=== PATIENT | male | born 1995 | race Hispanic/Latino ===

== ENCOUNTER → 2019-08-18 | Outpatient (CLI) | payer BC ==
--- NOTE | 2019-08-18 14:23 | Diagnostic Imaging Report ---
EXAM: CT Abdomen and Pelvis WITHOUT intravenous contrast INDICATION: Flank pain COMPARISON: None. TECHNIQUE: Abdomen and pelvis were scanned utilizing a multidetector helical scanner from the lung base to the pubic symphysis without administration of IV contrast. Coronal and sagittal reformations were obtained. IV CONTRAST: None ORAL CONTRAST: Water COMPLICATIONS: None RADIATION DOSE: Total DLP: 567.95 mGy*cm Dose modulation, iterative reconstruction, and/or weight based adjustment of the mA/kV was utilized to reduce the radiation dose to as low as reasonably achievable. FINDINGS: LOWER THORAX: Normal. HEPATOBILIARY: No focal liver lesion. Status post cholecystectomy. SPLEEN: No splenomegaly. PANCREAS: No focal masses or ductal dilatation. ADRENALS: No adrenal nodules. KIDNEYS/URETERS: No hydronephrosis, stones, or solid mass lesions. PELVIC ORGANS/BLADDER: Unremarkable. PERITONEUM / RETROPERITONEUM: No free air or fluid. LYMPH NODES: No lymphadenopathy. VESSELS: Unremarkable. GI TRACT: No abnormal bowel wall thickening. No bowel obstruction. Normal appendix. BONES AND SOFT TISSUES: No acute osseous injury. No suspicious lytic or blastic lesions. IMPRESSION: No acute process in the abdomen or pelvis. Specifically, no renal calculi or hydronephrosis. Signed by: Pepe Lerma MD on 08/18/2019 2:20 PM
--- NOTE | 2019-08-18 16:01 | Diagnostic Imaging Report ---
Exam: Testicular ultrasound. Clinical History: Testicular atrophy Findings: Sonographic evaluation of the testicles with wilder scale, color doppler, and waveform analysis. Both testes are normal in echogenicity and blood flow. RIGHT: The right testicle measures 5.1 x 2.3 x 2.9 cm. No intratesticular mass. Trace right hydrocele. No varicocele. The right epididymis measures 1.1 x 0.8 x 0.9 cm and appears unremarkable. LEFT: The left testicle measures 3.8 x 1.8 x 2.6 cm. No intratesticular mass. No hydrocele or varicocele. The left epididymis measures 0.9 x 0.8 x 0.9 cm and appears unremarkable. Impression: Slightly asymmetric testicular size right greater than left. Otherwise, normal echogenicity and blood flow of testes with no evidence of intratesticular mass. Trace right hydrocele. Signed by: Pepe Lerma MD on 08/18/2019 3:57 PM
== END ==
LOC: US 13:16
PROVIDERS: ATTEND Urology
DX: N50.0 Atrophy of testis (principal); Z84.1 Family history of disorders of kidney and ureter
CPT/HCPCS: 74176; 76870; 93976